=== PATIENT | female | born 1940 | race Caucasian/White ===

== ENCOUNTER 2021-09-26 09:23 | Inpatient (IN) | payer MEDICARE, MEDICAID ==
[~2021-09-26] VITALS: Ht 162.6 cm; Wt 63.0 kg
[2021-09-26] MEDS ORDERED: TETANUS, DIPHTHERIA, PERTUSSIS VAC/PF 0.5ML (>10YR OLD) IM ONE (10:15)
[2021-09-26] MEDS ORDERED: SODIUM CHLORIDE 0.9% 1,000 ML IV ONE (10:15)
[2021-09-26 10:31] LABS: BASOPHILS % 0.9 % (0.0-2.0); EOSINOPHILS % 3.1 % (0.0-5.0); HEMATOCRIT. 36.7 % (36.0-48.0); HEMOGLOBIN. 12.1 g/dL (12.0-16.0); LYMPHOCYTES % 22.5 % (20.0-50.0); MEAN CORPUSCULAR HEMOGLOBIN 28.2 pg (28.0-32.0); MEAN CORPUSCULAR VOLUME 85.7 fL (81.0-99.0); MEAN PLATELET VOLUME 7.4 fl (7.4-10.4); NEUTROPHILS % 66.5 % (40.0-76.0); PLATELET 267 x1000/uL (130-400); RED BLOOD CELL COUNT 4.29 mill/uL (4.2-5.4); RED CELL DISTRIBUTION WIDTH 13.9 % (11.6-14.6)
[2021-09-26 10:37] LABS: CHLORIDE 111 mEq/L (98-107)
[2021-09-26 10:48] LABS: PARTIAL THROMBOPLASTIN TIME 29.2 sec (23.4-31.0); PROTHROMBIN TIME 10.9 sec (9.6-11.0)
[2021-09-26] MEDS ORDERED: ASPIRIN 81MG TABLET PO ONE (12:15)
[2021-09-26] MEDS ORDERED: NITROGLYCERIN 0.4MG TABLET SL SL PRN (12:15)
[2021-09-26] MEDS ORDERED: ONDANSETRON HCL 4MG/2ML INJ IV PRN (16:00)
[2021-09-26] MEDS: SODIUM CHLORIDE 0.45% 1,000 ML IV SCH (16:00)
[2021-09-26] MEDS ORDERED: CLONIDINE 0.1MG TABLET PO PRN (16:00)
[2021-09-26] MEDS ORDERED: HYDROCODONE/ACETAMINOPHEN 5/325MG TABLET PO PRN (16:00)
[2021-09-26] MEDS ORDERED: MAGNESIUM/ALUMINUM HYDROXIDE/SIMETHICONE 30ML UDC PO PRN (16:00)
[2021-09-26] MEDS ORDERED: DOCUSATE SODIUM 100MG CAPSULE PO PRN (16:00)
[2021-09-26] MEDS ORDERED: ACETAMINOPHEN 325MG TABLET PO PRN (16:00)
[2021-09-26] MEDS ORDERED: GUAIFENESIN 200MG/10ML SUGAR FREE UDC PO PRN (16:00)
[2021-09-26] MEDS ORDERED: ENOXAPARIN 30MG/0.3ML SYR SUBCUT SCH (17:00)
[2021-09-26 21:58] VITALS: BP 137/62
[2021-09-27 00:21] VITALS: BP 101/47
[2021-09-27] MEDS ORDERED: LOSA25TA26 MT (00:53)
[2021-09-27] MEDS ORDERED: AMLO2.5T45 MT (00:56)
[2021-09-27] MEDS ORDERED: ATOR20TA65 MT (00:56)
[2021-09-27] MEDS ORDERED: METF-873 MT (00:56)
[2021-09-27] MEDS ORDERED: HYDR12.54 MT (00:56)
[2021-09-27] MEDS ORDERED: ACET650T37 PO (00:57)
[2021-09-27] MEDS ORDERED: hydrochlorothiazide PO (02:09)
[2021-09-27] MEDS ORDERED: amlodipine PO (02:09)
[2021-09-27] MEDS ORDERED: metformin PO (02:09)
[2021-09-27] MEDS ORDERED: losartan PO (02:09)
[2021-09-27] MEDS ORDERED: atorvastatin PO (02:09)
[2021-09-27 04:24] VITALS: BP 141/80
[2021-09-27 06:41] LABS: BASOPHILS % 0.7 % (0.0-2.0); EOSINOPHILS % 3.2 % (0.0-5.0); HEMATOCRIT. 35.1 % (36.0-48.0); HEMOGLOBIN. 12.1 g/dL (12.0-16.0); LYMPHOCYTES % 25.4 % (20.0-50.0); MEAN CORPUSCULAR HEMOGLOBIN 28.9 pg (28.0-32.0); MEAN CORPUSCULAR VOLUME 83.7 fL (81.0-99.0); MEAN PLATELET VOLUME 7.8 fl (7.4-10.4); MONOCYTES % 8.6 % (2.0-8.0); NEUTROPHILS % 62.1 % (40.0-76.0); PLATELET 254 x1000/uL (130-400); RED BLOOD CELL COUNT 4.19 mill/uL (4.2-5.4); RED CELL DISTRIBUTION WIDTH 13.5 % (11.6-14.6)
[2021-09-27] MEDS: SODIUM CHLORIDE 0.45% 1,000 ML IV SCH (06:42)
[2021-09-27 07:52] LABS: CHLORIDE 109 mEq/L (98-107)
[2021-09-27 08:00] VITALS: BP 135/71
[2021-09-27 08:01] LABS: LDL CHOLESTEROL 87 mg/dL (5-100)
[2021-09-27 08:03] LABS: HDL CHOLESTEROL 49 mg/dL (40-59)
[2021-09-27 11:35] LABS: T4 FREE 0.92 ng/dL (0.76-1.46)
[2021-09-27 12:00] VITALS: BP 153/73
[2021-09-27] MEDS: DILTIAZEM HCL 30MG TABLET PO SCH ×3 (14:19→23:24)
[2021-09-27] MEDS: ENOXAPARIN 60MG/0.6ML SYR SUBCUT SCH ×2 (14:20→21:12)
[2021-09-27 16:00] VITALS: BP 151/91
[2021-09-27 20:00] VITALS: BP 108/48
[2021-09-28] VITALS: BP 112/57
[2021-09-28 04:00] VITALS: BP 108/66
[2021-09-28] MEDS: DILTIAZEM HCL 30MG TABLET PO SCH ×2 (05:16→12:04)
[2021-09-28 08:00] VITALS: BP 127/77
[2021-09-28] MEDS: ENOXAPARIN 60MG/0.6ML SYR SUBCUT SCH (08:51)
[2021-09-28 11:37] VITALS: BP 128/61
[2021-09-28 12:00] VITALS: BP 128/61
== END 2021-09-28 16:20 | disposition home health service (06) | DRG 48 ==
LOC: ER 09:34 → 6WST 13:12 → ENRESERV 19:30
PROVIDERS: ADMIT Hospitalist; ATTEND Hospitalist
PROC: 0HQ1XZZ Repair Face Skin, External Approach (ICD-10-PCS; principal; 2021-09-26)
DX: G90.8 Other disorders of autonomic nervous system (principal); E11.9 Type 2 diabetes mellitus without complications; S01.112A Laceration without foreign body of left eyelid and periocular area, initial encounter; I10 Essential (primary) hypertension; E78.5 Hyperlipidemia, unspecified; Z20.822 Contact with and (suspected) exposure to COVID-19; I48.91 Unspecified atrial fibrillation; W18.39XA Other fall on same level, initial encounter; Y93.89 Activity, other specified; Y92.89 Other specified places as the place of occurrence of the external cause; Y99.8 Other external cause status
CPT/HCPCS: 36415; 71045; 80053; 80061; 83880; 84439; 84443; 84481; 84484; 85025; 87426; 93005; 93306; 93970; 97162; 99285; J1650; J7030